=== PATIENT | female | born 1945 | race Caucasian/White ===

== ENCOUNTER 2016-08-14 08:33 | Emergency (ER) | payer MEDICARE, OTHER ==
[2016-08-14] MEDS ORDERED: ONDANSETRON HCL/PF 2 MG/ML VIAL IV ONE (09:18)
[2016-08-14] MEDS ORDERED: NORMAL SALINE 1,000 ML IV ONE (09:18)
[2016-08-14] MEDS ORDERED: FAMOTIDINE 10 MG/ML VIAL IV ONE (09:34)
[2016-08-14] MEDS ORDERED: ONDANSETRON HCL/PF 2 MG/ML VIAL ONE (09:34)
[2016-08-14 09:40] LABS: Urine Bilirubin Negative (NEGATIVE); Urine Blood 25 /ul (NEGATIVE); Urine Ketone Negative (NEGATIVE); Urine Nitrite Negative (NEGATIVE); Urine Protein 30 mg/dL (NEGATIVE); Urine Specific Gravity >=1.030 SP.GR. (1.005-1.010); Urine Urobilinogen Normal (NORMAL)
[2016-08-14 09:55] LABS: Urine Appearance Clear; Urine Color Dark Yellow
[2016-08-14 09:56] LABS: Urine Bacteria 1+; Urine RBC TRACE /hpf (0-5); Urine WBC TRACE /hpf (0-5)
[2016-08-14 09:59] LABS: Hematocrit 44.2 % (37.0-47.0); Hemoglobin 15.3 gm/dL (12.5-16.0); Mean Cell Volume 85.7 fl (78-100); Mean Corpuscular Hemoglobin 29.7 pg (27-31); Mean Corpuscular Hgb Conc 34.6 g/dl (32-36); Mean Platelet Volume 10.6 fl (6.0-9.5); Platelet Count 167 K/mm3 (150-450); Red Blood Count 5.16 M/mm3 (4.2-5.4)
[2016-08-14 10:02] LABS: White Blood Count 31.3 K/mm3 (4.0-10.5)
[2016-08-14 10:03] LABS: Total Cells Counted 100
[2016-08-14 10:08] LABS: Neutrophil 84 % (42-75)
[2016-08-14 10:09] LABS: Atypical (Reactive) Lymph 4 % (0-2); Band 8 % (0-2.0); Lymphocyte 3 % (20-51); Monocyte 1 % (0-9); Neutrophil # 26.3 K/mm3 (1.3-6.0)
[2016-08-14 10:10] LABS: Platelet Estimate Normal (NORMAL); Prothrombin Time (Patient) 11.9 Seconds (9.4-11.4); RBC Morphology Normal (NORMAL)
[2016-08-14 10:14] LABS: INR 1.14 INR (0.90-1.10); Partial Thrombolplastin Time 26.6 Seconds (24-32)
[2016-08-14 10:23] LABS: Albumin * 3.6 gm/dl (3.4-5.0); Bilirubin, Total 0.7 mg/dL (0.0-1.1); Ca. Corrected For Albumin 8.8 mg/dL (8.4-10.2); Calcium * 8.8 mg/dL (7.9-10.9); Carbon Dioxide 24.6 mmol/L (24-32.6); Potassium 4.6 mmol/L (3.4-4.6); Total Protein 7.3 gm/dL (6.2-8.2)
[2016-08-14 10:25] LABS: Troponin I 3.188 ng/ml (0.00-0.10)
[2016-08-14] MEDS: FAMOTIDINE 10 MG/ML VIAL IV ONE ×2 (10:33→10:47)
--- OUTSIDE RECORDS SUMMARY | 2016-08-14 10:33 | XMS REPORT | Continuity of Care Document ---
:1945 Author Organization [facility] ([facility]) Address [place] [address] Phone [phone] Care Team Providers Name Role Phone Elier Resendezlio Wiggins Primary Care Provider [phone] Source Comments This disclosure is being made pursuant to the Care Everywhere program, applicable federal and state laws, and may not contain all informaitonavailable regarding this patient.[facility] ([facility]) Active Allergies and Adverse Reactions Allergen Noted Date Severity Reactions Comments Cefaclor Urticaria (Hives) Cefadroxil Urticaria (Hives) Cephalexin Urticaria (Hives) Cephalosporins Urticaria (Hives) Clarithromycin Urticaria (Hives) Clopidogrel Urticaria (Hives) Codeine Nausea & Vomiting Erythromycin Urticaria (Hives) Morphine Nausea & Vomiting Other Agent Urticaria (Hives) Pt states gets red, itchy skin from BP cuff (even Latex free) if on for long periods. Penicillin V Urticaria (Hives) Penicillins Urticaria (Hives) Pollen Rhinorrhea Sulfadoxine Urticaria (Hives) Sulfamethoxazole Urticaria (Hives) Tetracycline 03/08/2012 Urticaria (Hives) Severe hives per pt Trimethoprim Urticaria (Hives) Current Medications Prescription Sig. Disp. Refills Start End Date Status Date aspirin (ASPIR-81) take 81 mg by Active 81 mg EC tablet mouth daily. loratadine 10 mg Take 10 mg by Active dissolvable tablet mouth daily. Indications: ALLERGIC RHINITIS multivitamin take 1 tablet by Active tablet oral route every 3 day with food coenzyme Q10 100 Take 200 mg by Active mg capsule mouth 2 times daily. clonazePAM 1 mg TK 1 T PO QHS PRN 30 tablet 1 Active tablet FOR RESTLESS LEGS 6 SUPPLY ACCU-CHEK 4 times daily. 300 Strip Active ERASMO PLUS test Insulin Dependent. 7 strip Frequent testing due to hypoglycemia SUPPLY ACCU-CHEK Take as directed 300 Each Active SOFTCLIX lancets daily. Insulin 7 Dependent. Frequent testing due to hypoglycemia. SUPPLY alcohol Use as directed. 200 Each Active (ALCOHOL PREP) 7 pads SUPPLY ACCU-CHEK by In Vitro route 1 Each 0 Active ERASMO meter daily. ICD-10-CM: 7 E11.9, Z79.4 atenolol 50 mg Take 1 tablet (50 90 tablet 11 Active tablet mg total) by mouth 7 daily. allopurinol 100 mg Take 1 tablet (100 90 tablet Active tablet mg total) by mouth 7 daily. carBAMazepine Take 1 capsule 180 capsule 3 Active (CARBATROL) 200 mg (200 mg total) by 7 CR capsule mouth 2 times daily. insulin aspart 10 units in AM, 30 mL 7 Active (NovoLOG FLEXPEN) then 20 units at 7 100 unit/mL (3 mL) lunch, 20 units injection pen with dinner lisinopril 30 mg Take 1 tablet (30 30 tablet 3 Active tablet mg total) by mouth 7 every morning. insulin glargine Use 40 units in 15 mL 6 Active (LanTUS SOLOSTAR) AM, 55 units in PM 7 100 unit/mL (3 mL) injection pen levothyroxine 125 Take 1 tablet (125 30 tablet 5 Active mcg tablet mcg total) by 7 mouth daily. insulin lispro Inject 20 Units 07/17/19 Discontinued (HumaLOG) 100 subcutaneously 3 17 unit/mL injection times daily before vial meals. insulin glargine 40 units AM and 55 08/09/19 Discontinued (LANTUS) 100 units PM 2 17 unit/mL injection vial pravastatin 10 mg TK 1 T PO QHS 11 08/14/19 Discontinued tablet 6 17 lisinopril 20 mg Take 1 tablet (20 90 tablet 08/09/19 Discontinued tablet mg total) by mouth 7 17 every morning. lisinopril 10 mg Take 1 tablet (10 90 tablet 08/09/19 Discontinued tablet mg total) by mouth 7 17 every evening. levothyroxine 150 Take 1 tablet (150 90 tablet 08/14/19 Discontinued mcg tablet mcg total) by 7 17 mouth daily. isosorbide Take 1 tablet (30 90 tablet 08/14/19 Discontinued dinitrate 30 mg mg total) by mouth 7 17 tablet daily. insulin aspart Inject 20 Units 30 mL 7 08/09/19 Discontinued (NovoLOG FLEXPEN) subcutaneously 3 7 17 100 unit/mL (3 mL) times daily before injection pen meals. Active Problems Problem Noted Date Morbid obesity 02/19/2016 Dermatophytosis of nail 05/10/2012 Pain in limb 05/10/2012 Diabetes mellitus type 2, controlled 03/27/2012 HTN (hypertension) 03/27/2012 Anxiety 03/27/2012 Depression 03/27/2012 GERD (gastroesophageal reflux disease) 03/27/2012 Pure hypercholesterolemia 03/27/2012 Rhinitis, allergic 03/27/2012 Seizure disorder 03/27/2012 Restless leg syndrome 03/27/2012 Diabetic neuropathy 03/27/2012 Contracture of joint, site unspecified 09/28/2007 Pain in joint, lower leg 05/02/2007 Most Recent Encounters Date Type Specialty Providers Description 08/13/2016 Telephone General Internal Jessica Resendez Dx: Controlled type 2 Medicine MD Feliciano diabetes mellitus without complication, unspecified exterminator helper termite insulin use status (Primary Dx) 08/09/2016 Office Visit Pathology Judy Smith Dx: Postablative MD Alphonso hypothyroidism Lab Services, Irl (Primary Dx) 08/09/2016 Hospital Encounter Radiology Default, Other Dx: Encounter for Billg - Defo screening mammogram Hadley Casarez for malignant neoplasm MD Yissel of breast 08/09/2016 Office Visit General Internal Default, Other Dx: Controlled type 2 Medicine Billg - Defo diabetes mellitus Judy Smith without complication, MD Alphonso unspecified exterminator helper termite Jessica Resendez insulin use status MD Feliciano (Primary Dx) 08/09/2016 [facility] Orders Patient Services 07/23/2016 Telephone General Internal Jessica Resendez Chief Comp: Medication Medicine MD Feliciano Problem 07/15/2016 Telephone General Internal Jessica Resendez Dx: Controlled type 2 Medicine MD Feliciano diabetes mellitus without complication, unspecified half-way insulin use status (Primary Dx) 07/09/2016 Hospital Encounter Neurology Bong Mclean, Dx: Seizure disorder 07/07/2016 Office Visit Neurology Allen Bond, Dx: Seizure disorder 07/06/2016 Office Visit Remy Jennings, Chief Comp: Patient Primary NEDA Hathaway Reported Reason For Visit 07/06/2016 Refill General Internal Jessica Resendez Dx: Essential Medicine MD Feliciano hypertension (Primary Dx) 07/06/2016 Refill General Internal Jessica Resendez Dx: Controlled type 2 Medicine MD Feliciano diabetes mellitus without complication, with long-term current use of insulin (Primary Dx) 06/24/2016 Telephone General Internal Jessica Resendez Dx: Controlled type 2 Medicine MD Feliciano diabetes mellitus without complication, with long-term current use of insulin (Primary Dx) 06/21/2016 Refill General Internal Jessica Resendez Dx: Controlled type 2 Medicine MD Feliciano diabetes mellitus without complication, with long-term current use of insulin (Primary Dx) 06/17/2016 Refill General Internal Jessica Resendez Dx: Controlled type 2 Medicine MD Feliciano diabetes mellitus with diabetic neuropathy, with long-term current use of insulin (Primary Dx) Immunizations Name Dates Previously Given Next Due Influenza, PF 03/08/2012,03/08/2011 Influenza, high dose 03/26/2016 Influenza, unspecified 03/13/2007 Pneumococcal Conjugate, PCV13 (Prevnar 13) 04/09/2016 Pneumococcal, unspecified 03/13/2006 Tdap 03/20/2015 Zoster, live (Zostavax) 11/06/2014 Social History Tobacco Use Types Packs/Day Years Used Date Former Smoker Cigarettes 0.5 1 Smokeless Tobacco: Never Used Tobacco Cessation:Counseling Given: Yes Comments: Alcohol Use Drinks/Week oz/Week Comments No Last Filed Vital Signs Vital Sign Reading Time Taken Blood Pressure 150/76 08/09/2016 7:39 AM CUSTOMER SERVICE TECHNICIAN Pulse 52 08/09/2016 7:39 AM CUSTOMER SERVICE TECHNICIAN Temperature 36.4 C (97.5 F) 08/09/2016 7:39 AM CUSTOMER SERVICE TECHNICIAN Respiratory Rate 16 08/09/2016 7:39 AM CUSTOMER SERVICE TECHNICIAN Height 1.575 m (5' 2.01") 08/09/2016 7:39 AM CUSTOMER SERVICE TECHNICIAN Weight 97.6 kg (215 lb 2.7 oz) 08/09/2016 7:39 AM CUSTOMER SERVICE TECHNICIAN Body Mass Index 39.34 08/09/2016 7:39 AM CUSTOMER SERVICE TECHNICIAN Oxygen Saturation - - Plan of Care Date Type Specialty Providers Description 11/22/2016 Appointment General Internal Default, Other Billg - Defo [address] [place] [address] [phone] (Fax) Chief Comp: Patient Medicine Jessica Resendez MD [address] [place] [address] [phone] (Fax) Reported Reason For Visit Health Maintenance Due Date Last Done Comments Hepatitis B Vaccine (1 of 3 - 1945 Primary Series) Colonoscopy 02/03/1997 Osteoporosis Screening (DXA 02/05/2012 Bone Density) DIABETIC: Retinal Eye Exam 05/09/2012 DIABETIC: Hemoglobin A1C 02/06/2017 08/09/2016, Additional history exists 04/27/2016, 01/06/2016 Pneumococcal Vaccine (2 of 2 04/09/2017 04/09/2016 - PPSV23) DIABETIC: Cholesterol 08/09/2017 08/09/2016, 02/19/2016 Diabetic: Hdl 08/09/2017 08/09/2016, 02/19/2016 Diabetic: Ldl 08/09/2017 08/09/2016, 02/19/2016 DIABETIC: Microalbumin 08/09/2017 08/09/2016, 02/19/2016 DIABETIC: Triglycerides 08/09/2017 08/09/2016, 02/19/2016 Mammogram 08/09/2017 08/09/2016 DIABETIC: Foot Exam 08/13/2017 08/13/2016, 02/19/2016 Td Vaccine 03/20/2025 03/20/2015 Zoster Vaccine Completed 11/06/2014 Tdap Vaccine Completed 03/20/2015 HCV Screening Completed 02/19/2016 Influenza Vaccine: Seasonal Completed 03/26/2016, Additional history exists 03/08/2012, 03/08/2011 Procedures from Last 3 Months Procedure Name Priority Date/Time Associated Diagnosis Comments HEALTH MAINTENANCE Routine 08/13/2016 7:36 AM Controlled type 2 DIABETIC FOOT EXAM CUSTOMER SERVICE TECHNICIAN diabetes mellitus without complication, unspecified half-way insulin use status Results from Last 3 Months THYROXINE - FREE (08/09/2016 10:31 AM) Component Value Range Free T4 (Thyroxine) 1.17 0.80-1.80 ng/dL Specimen Blood THYROID STIMULATING HORMONE (TSH), WITH REFLEX FREE T-4 (08/09/2016 10:31 AM) Component Value Range TSH, Reflex 0.18(L) 0.27-4.20 IU/mL Specimen Blood MICROALBUMIN, URINE RANDOM (08/09/2016 10:31 AM) Component Value Range Microalbumin Calculation 7.1 0.0-19.9 g/mg Creatinine, Urine, Random 112.0 mg/dL Specimen Urine LIPID PANEL (08/09/2016 10:31 AM) Component Value Range Specimen Type Fasting Cholesterol 142Comment: mg/dL Reference Range: Less than 200 mg/dL - desirable 200 - 240 mg/dL - increased risk Above 240 mg/dL - significant risk Triglycerides 239(H)Comment: 0-150 mg/dL Reference Ranges: Normal:<150 mg/dL Borderline-high:150-199 mg/dL High: 200-499 mg/dL Very high: > ud=261 mg/dL HDL Cholesterol 31(L) >=41 mg/dL LDL - Calculated 63 <=130 mg/dL Non-HDL Cholesterol (Calc) 111Comment: mg/dL The reference ranges for Non-HDL-C are based on National Cholesterol Education III guidelines: Desirable: <130 mg/dL Borderline High: 130-159 mg/dL High:160-189 mg/dL Very High: > bm=681 mg/dL Specimen Blood HEMOGLOBIN A1C (08/09/2016 10:31 AM) Component Value Range Hemoglobin A1c 6.2(H)Comment: 4.8-6.0 % Glycemic Control Guidelines: Non-diabetic <6% Goal <7% Therapeutic Action >8% Estimated Average Glucose 131Comment: mg/dL The estimated average glucose (eAG) calculated from the HbA1c changed on 30/01.See Laboratory Bulletins in the Department of Pathology Laboratory Services Handbook for a full discussion.Not e that the new calculated glucose will now be lower.The A1c result is unchanged. Specimen Whole Blood BASIC METABOLIC PANEL W/ CALCIUM (CHEM 8) (08/09/2016 10:31 AM) Component Value Range Sodium 145 135-145 mEq/L Potassium 4.3 3.5-5.0 mEq/L Chloride 104 95-107 mEq/L CO2 25 22-29 mEq/L Anion Gap 16 8-18 mEq/L BUN 10 10-20 mg/dL Creatinine 0.7Comment: 0.5-1.0 mg/dL Creatinine switched to enzymatic method on 10/20/2010.GFR equation switched to IDMS-traceable MDRD equation on 10/20/2010. Calculated GFR values are not valid in clinical settings where serum creatinine is changing. Glucose 107(H)Comment: 65-99 mg/dL The Expert Committee on the Diagnosis and Classification of Diabetes has defined impaired fasting glucose as greater than or equal to 100 mg/dL but less than 126 mg/dL.(Diabetes Care 28 (Suppl 1)S41,2005) Calcium 9.1 8.5-10.5 mg/dL Calculated GFR 83 >60 mL/min/1.73 m2 Specimen Blood BI DIGITAL SCREENING MAMMOGRAM BILATERAL& KELSIE (08/09/2016 10:09 AM) Addenda Addendum by Heraclio Deleon MD on 08/11/2016 10:10 AM Addendum: Comparison to outside mammogram obtained from [facility] dated 10/01/2014, 05/04/2010, 01/15/2009. Findings: Bilateral subcentimeter asymmetries are stable from prior exams. Grouped calcifications within the lower outer right breast are grossly stable. No significant interval change in either breast since the prior examination. Yearly screening mammography recommended. Impression: Stable bilateral mammogram. Recommendation:Screening Mammogram in one year is recommended. These results were provided to the patient by letter. Final Assessment: Benign findings BI-RADS 2 Impressions Findings / Impression: There are scattered bilateral subcentimeter asymmetries. There are grouped calcifications within the lower outer right breast. Comparison to the prior outside mammogram is recommended to determine whether these findings are new or stable. Recommendation: Final assessment will be made when prior studies are received for comparison. These results were provided to the patient by letter. Final Assessment: Incomplete, Needs additional imaging Evaluation - Comparison with prior studies BI-RADS Category 0. Narrative Procedure: BI DIGITAL SCREENING MAMMOGRAM BILATERAL & KELSIE Technique:Digital mammogram with Tomosynthesis, bilateral CC and MLO views. Clinical Indication:Breast cancer screening Personal History of breast cancer:No Personal Delivery History:Prior to age 32 Personal History of biopsy proven benign breast disease:No Personal history of reduction mammoplasty: No Family History of breast cancer:No Date of Comparison Study:Will be requested and compared with the current examination. Parenchymal Radiodensity:There are scattered areas of fibroglandular density. Procedure Note Everton Reed MD - TueAug 11, 2016 9:46 AM CUSTOMER SERVICE TECHNICIAN Procedure: BI DIGITAL SCREENING MAMMOGRAM BILATERAL & KELSIE Technique: Digital mammogram with Tomosynthesis, bilateral CC and MLO views. Clinical Indication: Breast cancer screening Personal History of breast cancer: No Personal Delivery History: Prior to age 32 Personal History of biopsy proven benign breast disease: No Personal history of reduction mammoplasty: No Family History of breast cancer: No Date of Comparison Study: Will be requested and compared with the current examination. Parenchymal Radiodensity: There are scattered areas of fibroglandular density. IMPRESSION Findings / Impression: There are scattered bilateral subcentimeter asymmetries. There are grouped calcifications within the lower outer right breast. Comparison to the prior outside mammogram is recommended to determine whether these findings are new or stable. Recommendation: Final assessment will be made when prior studies are received for comparison. These results were provided to the patient by letter. Final Assessment: Incomplete, Needs additional imaging Evaluation - Comparison with prior studies BI-RADS Category 0. EEG - IN LAB (07/19/2016 1:50 PM) Gemini Bhatt MD 07/19/20161:50 PM Clinical State: Awake and asleep Electrographic Findings: This was a 22 minute recording. Background: Normal 10-11 Hz posterior dominant rhythm and general background. There was activation of bitemporal wicket waves, which were more prominent over the left temporal region, during drowsiness and sleep. During 9 minutes of drowsiness and light sleep sleep, there was symmetric sleep activity. Interictal Discharges: None Ictal Discharges: None Reactive EEG change: Present Clinical Events: None Description: Normal posterior dominant rhythm and general background. The activation of wicket waves during drowsiness and light sleep has no clinical significance. Impression: Normal EEG for the awake and sleep state. Staff Involved Staff Only Gemini Soto MD Department of Neurology, Epilepsy Division Attending Electronically signed Technical Parameter Details: Background Activity (awake) Primary Frequency 9-11 Hz Amplitude 40-60 microvolts Organization good Symmetry equal frequencies in both hemispheres Attenuation physiological Beta Rhythm absent Abnormal Activity (awake): None; Activation of wicket waves during drowsiness and sleep. Level of Sleep:N1 Hyperventilation Performance:Satisfactory with response showing physiologic response. Photic Stimulation:Satisfactory with no well developed photic driving. Special Forms, Patterns, or Rhythms:None Degree of Abnormality of EEG:Normal For Clinical impression and correlation please see above the technical detail section.
--- OUTSIDE RECORDS SUMMARY | 2016-08-14 10:33 | XMS REPORT | CCD ---
:1945 Author Name HAN MURPHY Address [address] [facility] Unavailable [place], [place] [id number] Care Team Providers Name Role Phone SANA BOB Attending Physician Unavailable Vital Signs Unknown. Allergies Allergy Code Allergy Type Reaction Status CEPHALEXIN 0 Drug allergy (disorder) Active Unknown Code - 0 0 Propensity to adverse reactions (disorder) Active DURICEF 0 Drug allergy (disorder) Active PRADAXA 0 Drug allergy (disorder) Active LATEX 0 Allergy to substance (disorder) Active CLARITHROMYCIN 0 Drug allergy (disorder) Active TETRACYCLINE 0 Drug allergy (disorder) Active CODEINE 0 Drug allergy (disorder) Active MORPHINE 0 Drug allergy (disorder) Active SULFAMETHOXAZOLE 0 Drug allergy (disorder) Active PENICILLIN 0 Drug allergy (disorder) Active CLOPIDOGREL 0 Drug allergy (disorder) Active CECLOR 0 Drug allergy (disorder) Active Procedures Unknown. History of Immunizations Immunization Code Date pneumococcal, unspecified formulation 109 03/23/2011 Invalid Cvx Code 144 03/08/2012 Problems Problem Code Start Date Resolved Date Status CHEST PAIN 43041257 05/23/2012 Active CORONARY ATHEROSCLEROSIS OF [place] CORONARY 58769 05/23/2012 Active ARTERY BP (HIGH BLOOD PRESSURE) 08149004 05/23/2012 Active OLD MYOCARDIAL INFARCT 2230258 05/23/2012 Active TYPE II DIABETES MELLITUS 15059446 05/23/2012 Active EPILEPSY 93212968 05/23/2012 Active HYPOTHYROIDISM 78072376 05/23/2012 Active Results Unknown. Medications Medication Code Dose Units Frequency Route Modification Start Stop Date/Time Date/Time Carbamazepine 300235 200 MILLIGRA 3 x a day, ORAL 06/05/2012 200MG Oral MS as needed 11:40 Tablet, Extended Release Allopurinol 208414 100 MILLIGRA Daily ORAL 06/05/2012 100MG Oral MS 11:40 Tablet Gemfibrozil 944981 600 MILLIGRA Twice a ORAL 06/05/2012 600MG Oral MS day 11:40 Tablet Levothyroxine 129662 0.175 MILLIGRA Daily ORAL 06/05/2012 Sodium 0.175MG MS 11:40 Oral Tablet Atenolol 50MG 506657 50 MILLIGRA At bedtime ORAL 06/05/2012 Oral Tablet MS 11:40 Aspirin 81MG 784628 81 MILLIGRA DAILY ORAL 08/10/2013 Oral Tablet MS 12:10 Lantus 494211 1 EACH TWICE A SUBCUTAN 08/10/2013 100U/1ML DAY EOUS 12:10 Subcutaneous Solution Lisinopril 024851 30 MILLIGRA DAILY ORAL 08/10/2013 30MG Oral MS 12:10 Tablet L-LYSINE 0 2 TABLET NEEDED BY MOUTH 08/10/2013 1000MG 12:10 Nitroglycerin 891892 0.4 MILLIGRA NEEDED SUBLINGU 08/10/2013 0.4MG MS AL 12:10 Sublingual Tablet Novolog 475051 25 UNITS DAILY SUBCUTAN 08/10/2013 FlexPen EOUS 12:10 100U/ML Subcutaneous Solution [facility] 154521 200 MILLIGRA TWICE A ORAL 08/10/2013 [employer] Q-10 MS DAY 12:10 200MG Oral Capsule, Liquid Filled Omeprazole 420640 20 MILLIGRA DAILY ORAL 08/10/2013 20MG Oral MS 12:11 Capsule, Delayed Release Isosorbide 802703 30 MILLIGRA DAILY ORAL 08/10/2013 Mononitrate MS 12:11 30MG Oral Tablet, Extended Release Diphenox/Atrop 0038602 1 EACH NEEDED ORAL 08/10/2013 ine 12:11 0.025MG-2.5MG Oral Tablet Mirapex 0.25MG 241389 0.25 MILLIGRA BEFORE BED ORAL 08/10/2013 Oral Tablet MS 12:11 Medications Administered Unknown. Encounters Encounter Diagnosis Diagnosis Code Start Date DIABETES W O COMP TYPE 2 UNSPECIFIE 08562 08/10/2013 Social History Smoking Status Code Start Date End Date Former smoker 0294507 Patient Decision Aids Unknown. Instructions You were admitted to [facility] on 08/10/2013 with a principle diagnosis of DIABETES W O COMP TYPE 2 UNSPECIFIE. You were discharged from [facility] on 08/10/2013. Should you have any questions prior to discharge, please contact a member of your healthcare team. If you have left the hospital and have any questions, please contact your primary care physician. Chief Complaint and Reason For Visit Unknown. Function Status Unknown. Plan of Care Unknown. Referral/Transition of Care Unknown.
--- OUTSIDE RECORDS SUMMARY | 2016-08-14 10:33 | XMS REPORT | CCD ---
:1945 Author Name HAN MURPHY Address [address] [facility] Unavailable [place], [place] [id number] Care Team Providers Name Role Phone MIAN EASLEY Attending Physician Unavailable Vital Signs Unknown. Allergies Allergy Code Allergy Type Reaction Status CEPHALEXIN 2231 Drug allergy (disorder) Active Unknown Code - 0 0 Propensity to adverse reactions (disorder) Active DURICEF 173615 Drug allergy (disorder) Active PRADAXA 1273698 Drug allergy (disorder) Active LATEX 0 Allergy to substance (disorder) Active CLARITHROMYCIN 05363 Drug allergy (disorder) Active TETRACYCLINE 07175 Drug allergy (disorder) Active CODEINE 2670 Drug allergy (disorder) Active MORPHINE 7052 Drug allergy (disorder) Active SULFAMETHOXAZOLE 39124 Drug allergy (disorder) Active PENICILLIN 76718 Drug allergy (disorder) Active CLOPIDOGREL 08070 Drug allergy (disorder) Active CECLOR 068135 Drug allergy (disorder) Active Procedures Unknown. History of Immunizations Immunization Code Date pneumococcal, unspecified formulation 109 03/23/2011 influenza, seasonal, intradermal, preservative free 144 03/08/2012 Problems Problem Code Start Date Resolved Date Status CHEST PAIN 40563694 05/23/2012 Active CORONARY ATHEROSCLEROSIS OF [place] CORONARY 64325 05/23/2012 Active ARTERY BP (HIGH BLOOD PRESSURE) 46337941 05/23/2012 Active OLD MYOCARDIAL INFARCT 3556925 05/23/2012 Active TYPE II DIABETES MELLITUS 45809448 05/23/2012 Active EPILEPSY 27039745 05/23/2012 Active HYPOTHYROIDISM 65705258 05/23/2012 Active Results HEMOGRAM Test Name Code Test Result Test Units Test Date/Time WBC 6690-2 9.4000 K/uL 12/05/2013 09:24 RBC 789-8 5.0500 M/uL 12/05/2013 09:24 HEMOGLOBIN 718-7 14.7000 g/dL 12/05/2013 09:24 HEMATOCRIT 42.4000 % 12/05/2013 09:24 MCV 84.0000 fL 12/05/2013 09:24 MCH 29.1000 PG 12/05/2013 09:24 MCHC 34.7000 G/DL 12/05/2013 09:24 PLATELETS 192.0000 K/UL 12/05/2013 09:24 RDW-SD 42.1000 FL 12/05/2013 09:24 RDW-CV 14.3000 % 12/05/2013 09:24 MPV 10.8000 FL 12/05/2013 09:24 SLIDE REVIEWED? NOT INDICATED N/A 12/05/2013 09:24 LIPID PANEL Test Name Code Test Result Test Units Test Date/Time CHOLESTEROL 2093-3 145.0000 mg/dL 12/05/2013 09:24 TRIGLYCERIDES 2571-8 194.0000 mg/dL 12/05/2013 09:24 HDL 2085-9 32.0000 mg/dL 12/05/2013 09:24 LDL 2089-1 74.0000 mg/dL 12/05/2013 09:24 CHOL/HDL 9830-1 4.5000 12/05/2013 09:24 TSH Test Name Code Test Result Test Units Test Date/Time TSH 3016-3 0.0600 uIU/ml 12/05/2013 09:24 COMPREHENSIVE METABOLIC PANEL Test Name Code Test Result Test Units Test Date/Time GLUCOSE 148.0000 mg/dL 12/05/2013 09:24 SODIUM 141.0000 mmol/L 12/05/2013 09:24 POTASSIUM 4.4000 mmol/L 12/05/2013 09:24 CHLORIDE 104.0000 mmol/L 12/05/2013 09:24 CO2 26.0000 mmol/L 12/05/2013 09:24 BUN 21.0000 mg/dL 12/05/2013 09:24 CREATININE 0.8000 mg/dL 12/05/2013 09:24 BUN/CREAT 26.3000 12/05/2013 09:24 CALCIUM 9.4000 mg/dL 12/05/2013 09:24 TOTAL BILI 0.4000 mg/dL 12/05/2013 09:24 TOTAL PROTEIN 7.4000 g/dL 12/05/2013 09:24 ALBUMIN 4.3000 g/dL 12/05/2013 09:24 A/G RATIO 1.4000 12/05/2013 09:24 ALKALINE PHOS 172.0000 IU/L 12/05/2013 09:24 AST/SGOT 23.0000 IU/L 12/05/2013 09:24 ALT/SGPT 37.0000 IU/L 12/05/2013 09:24 ANION GAP 15.0000 mmol/L 12/05/2013 09:24 [age] YE[age] 12/05/2013 09:24 GFR 76.2800 ml/min 12/05/2013 09:24 GLYCOSYLATED HGB Test Name Code Test Result Test Units Test Date/Time HA1c% 4548-4 6.8000 % 12/05/2013 09:24 eAG 148.0000 mg/dL 12/05/2013 09:24 MICROALBUMIN RANDOM Test Name Code Test Result Test Units Test Date/Time UR CREATININE 105.2000 mg/dL 12/05/2013 09:24 MICROALBUMIN RANDOM 0.2000 mg/dL 12/05/2013 09:24 MALB CREAT RATIO 1.9000 mg/g 12/05/2013 09:24 T4 FREE Test Name Code Test Result Test Units Test Date/Time FREE T4 0.9000 ng/dl 12/05/2013 09:24 Medications Medication Code Dose Units Frequency Route Modification Start Stop Date/Time Date/Time Carbamazepine 393781 200 MILLIGRA 3 x a day, ORAL 06/05/2012 200MG Oral MS as needed 11:40 Tablet, Extended Release Allopurinol 279364 100 MILLIGRA Daily ORAL 06/05/2012 100MG Oral MS 11:40 Tablet Gemfibrozil 854561 600 MILLIGRA Twice a ORAL 06/05/2012 600MG Oral MS day 11:40 Tablet Levothyroxine 256611 0.175 MILLIGRA Daily ORAL 06/05/2012 Sodium 0.175MG MS 11:40 Oral Tablet Atenolol 50MG 141650 50 MILLIGRA At bedtime ORAL 06/05/2012 Oral Tablet MS 11:40 Aspirin 81MG 365093 81 MILLIGRA DAILY ORAL 08/10/2013 Oral Tablet MS 12:10 Lantus 817907 1 EACH TWICE A SUBCUTAN 08/10/2013 100U/1ML DAY EOUS 12:10 Subcutaneous Solution Lisinopril 647215 30 MILLIGRA DAILY ORAL 08/10/2013 30MG Oral MS 12:10 Tablet L-LYSINE 0 2 TABLET NEEDED BY MOUTH 08/10/2013 1000MG 12:10 Nitroglycerin 713250 0.4 MILLIGRA NEEDED SUBLINGU 08/10/2013 0.4MG MS AL 12:10 Sublingual Tablet Novolog 340188 25 UNITS DAILY SUBCUTAN 08/10/2013 FlexPen EOUS 12:10 100U/ML Subcutaneous Solution The Medicine 783253 200 MILLIGRA TWICE A ORAL 08/10/2013 [employer] Q-10 MS DAY 12:10 200MG Oral Capsule, Liquid Filled Omeprazole 228044 20 MILLIGRA DAILY ORAL 08/10/2013 20MG Oral MS 12:11 Capsule, Delayed Release Isosorbide 420908 30 MILLIGRA DAILY ORAL 08/10/2013 Mononitrate MS 12:11 30MG Oral Tablet, Extended Release Diphenox/Atrop 3911923 1 EACH NEEDED ORAL 08/10/2013 ine 12:11 0.025MG-2.5MG Oral Tablet Mirapex 0.25MG 663525 0.25 MILLIGRA BEFORE BED ORAL 08/10/2013 Oral Tablet MS 12:11 Medications Administered Unknown. Encounters Encounter Diagnosis Diagnosis Code Start Date DIABETES W O COMP TYPE 2 UNSPECIFIE 20070 12/05/2013 Social History Smoking Status Code Start Date End Date Former smoker [id number] 01/11/1963 06/13/1969 Patient Decision Aids Unknown. Discharge Instructions You were admitted to [facility] on 12/05/2013 with a principle diagnosis of DIABETES W O COMP TYPE 2 UNSPECIFIE. You were discharged from [facility] on 12/05/2013. Should you have any questions prior to discharge, please contact a member of your healthcare team. If you have left the hospital and have any questions, please contact your primary care physician. Chief Complaint and Reason For Visit Unknown. Function Status Unknown. Plan of Care Diagnostic Test Pending Plan of Care Pending Diagnostic Test CARBAMAZEPINE/TEGRETOL, SERUM OR PLASMA, [LOINC: 3432-2], 12/05/2013 Referral/Transition of Care Unknown.
--- OUTSIDE RECORDS SUMMARY | 2016-08-14 10:34 | XMS REPORT | CCD ---
:1945 Author Name HAN MURPHY Address [address] [facility] Unavailable [place], [place] [id number] Care Team Providers Name Role Phone Alphonso DEL REAL Attending Physician Unavailable Vital Signs Vital Sign Value Unit Date/Time Recent/Initial? Weight Measured 220 lbs 10/31/2014 06:58 Initial VS Height 62 in 10/31/2014 06:58 Initial VS BMI (Body Mass Index) 40.24 kg/m^2 10/31/2014 06:58 Initial VS BSA (Body Surface Area) 2.09 m^2 10/31/2014 06:58 Initial VS Allergies Allergy Code Allergy Type Reaction Status CEPHALEXIN 2231 Drug allergy Active Unknown Code - 0 0 Propensity to adverse reactions Active DURICEF 500314 Drug allergy Active PRADAXA 8395331 Drug allergy Active LATEX 0 Allergy to substance Active CLARITHROMYCIN 42252 Drug allergy Active TETRACYCLINE 65303 Drug allergy Active CODEINE 2670 Drug allergy Active MORPHINE 7052 Drug allergy Active SULFAMETHOXAZOLE 87096 Drug allergy Active PENICILLIN 07451 Drug allergy Active CLOPIDOGREL 76350 Drug allergy Active CECLOR 632920 Drug allergy Active Procedures Procedure Code Procedure Type Date ENDOSCOPIC LG BOWEL BX 4525 ICD-9 CM, Volume 3 10/31/2014 History of Immunizations Immunization Code Date pneumococcal, unspecified formulation 109 03/23/2011 influenza, seasonal, intradermal, preservative free 144 03/08/2012 Problems Problem Code Start Date Resolved Date Status CHEST PAIN 17395962 05/23/2012 Active CORONARY ATHEROSCLEROSIS OF [place] CORONARY 26765 05/23/2012 Active ARTERY BP (HIGH BLOOD PRESSURE) 00007746 05/23/2012 Active OLD MYOCARDIAL INFARCT 5700942 05/23/2012 Active TYPE II DIABETES MELLITUS 36253574 05/23/2012 Active EPILEPSY 20968091 05/23/2012 Active HYPOTHYROIDISM 85125302 05/23/2012 Active Results Unknown or Not Available. Active Medications Medication Code Dose Units Frequency Route Modification Start Date/Time Diphenox/Atropi 1978524 1 EACH NEEDED ORAL 08/10/2013 ne 12:11 0.025MG-2.5MG Oral Tablet Isosorbide 114606 30 MILLIGRAMS DAILY ORAL 08/10/2013 Mononitrate 12:11 30MG Oral Tablet, Extended Release Mirapex 0.25MG 214978 0.25 MILLIGRAMS BEFORE BED ORAL 08/10/2013 Oral Tablet 12:11 Omeprazole 20MG 023047 20 MILLIGRAMS DAILY ORAL 08/10/2013 Oral Capsule, 12:11 Delayed Release Aspirin 81MG 523312 81 MILLIGRAMS DAILY ORAL 08/10/2013 Oral Tablet 12:10 L-LYSINE 1000MG 0 2 TABLET NEEDED BY MOUTH 08/10/2013 12:10 Lantus 100U/1ML 543176 1 EACH TWICE A SUBCUTANEOUS 08/10/2013 Subcutaneous DAY 12:10 Solution Lisinopril 30MG 916531 30 MILLIGRAMS DAILY ORAL 08/10/2013 Oral Tablet 12:10 Nitroglycerin 578945 0.4 MILLIGRAMS NEEDED SUBLINGUAL 08/10/2013 0.4MG 12:10 Sublingual Tablet Novolog FlexPen 938126 25 UNITS DAILY SUBCUTANEOUS 08/10/2013 100U/ML 12:10 Subcutaneous Solution The Medicine 988916 200 MILLIGRAMS TWICE A ORAL 08/10/2013 [employer] Q-10 DAY 12:10 200MG Oral Capsule, Liquid Filled Atenolol 50MG 636494 50 MILLIGRAMS At bedtime ORAL 06/05/2012 Oral Tablet 11:40 Gemfibrozil 807192 600 MILLIGRAMS Twice a ORAL 06/05/2012 600MG Oral day 11:40 Tablet Levothyroxine 800632 0.175 MILLIGRAMS Daily ORAL 06/05/2012 Sodium 0.175MG 11:40 Oral Tablet Allopurinol 599360 100 MILLIGRAMS Daily ORAL 06/05/2012 100MG Oral 11:40 Tablet Carbamazepine 270700 200 MILLIGRAMS 3 x a day, ORAL 06/05/2012 200MG Oral as needed 11:40 Tablet, Extended Release Medications Administered During Visit Unknown or Not Available. Encounters Encounter Diagnosis Diagnosis Code Start Date DIARRHEA 71084 10/31/2014 Social History Smoking Status Code Start Date End Date Former smoker [id number] 01/11/1963 06/13/1969 Patient Decision Aids Unknown or Not Available. Discharge Instructions You were admitted to [facility] on 10/31/2014 with a principal diagnosis of DIARRHEA. You had the following procedures done:COLONOSCOPY AND BIOPSY You were discharged from [facility] on 10/31/2014. Should you have any questions prior to discharge, please contact a member of your healthcare team. If you have left the hospital and have any questions, please contact your primary care physician. Chief Complaint and Reason For Visit Unknown or Not Available. Function Status Unknown or Not Available. Plan of Care Unknown or Not Available. Referral/Transition of Care Unknown or Not Available.
--- OUTSIDE RECORDS SUMMARY | 2016-08-14 10:34 | XMS REPORT | CCD ---
:1945 Author Name HAN MURPHY Address [address] [facility] Unavailable [place], [place] [phone] Care Team Providers Name Role Phone MIAN EASLEY Attending Physician Unavailable Vital Signs Unknown or Not Available. Allergies Allergy Code Allergy Type Reaction Status CEPHALEXIN 2231 Drug allergy Active Unknown Code - 0 0 Propensity to adverse reactions Active DURICEF 914367 Drug allergy Active PRADAXA 9127114 Drug allergy Active LATEX 0 Allergy to substance Active CLARITHROMYCIN 18069 Drug allergy Active TETRACYCLINE 05291 Drug allergy Active CODEINE 2670 Drug allergy Active MORPHINE 7052 Drug allergy Active SULFAMETHOXAZOLE 51914 Drug allergy Active PENICILLIN 21225 Drug allergy Active CLOPIDOGREL 34508 Drug allergy Active CECLOR 751975 Drug allergy Active Procedures Procedure Code Procedure Type Date TSH 18207886 SNOMED CT 10/21/2014 LIPID PANEL 85237936 SNOMED CT 10/21/2014 History of Immunizations Immunization Code Date pneumococcal, unspecified formulation 109 03/23/2011 influenza, seasonal, intradermal, preservative free 144 03/08/2012 Problems Problem Code Start Date Resolved Date Status CHEST PAIN 80195247 05/23/2012 Active CORONARY ATHEROSCLEROSIS OF [place] CORONARY 00367 05/23/2012 Active ARTERY BP (HIGH BLOOD PRESSURE) 56750988 05/23/2012 Active OLD MYOCARDIAL INFARCT 2167436 05/23/2012 Active TYPE II DIABETES MELLITUS 79726006 05/23/2012 Active EPILEPSY 09939679 05/23/2012 Active HYPOTHYROIDISM 95012779 05/23/2012 Active Results COMPREHENSIVE METABOLIC PANEL - Collect Date/Time: 10/21/2014 10:56 Test Name Code Test Result Test Units Test Ref Range GLUCOSE 174 mg/dL L=74 H=106 SODIUM 140 mmol/L L=136 H=145 POTASSIUM 4.3 mmol/L L=3.5 H=5.1 CHLORIDE 104 mmol/L L=98 H=107 CO2 27 mmol/L L=21 H=32 BUN 16.0 mg/dL L=7.0 H=18.0 CREATININE 0.8 mg/dL L=0.6 H=1.0 BUN/CREAT 20.0 L=7.6 H=21.2 CALCIUM 8.6 mg/dL L=8.6 H=10.1 TOTAL BILI 0.3 mg/dL L=0.2 H=1.0 TOTAL PROTEIN 6.9 g/dL L=6.4 H=8.2 ALBUMIN 3.8 g/dL L=3.4 H=5.0 A/G RATIO 1.2 ALKALINE PHOS 132 IU/L L=50 H=136 AST/SGOT 29 IU/L L=15 H=37 ALT/SGPT 37 IU/L L=12 H=78 ANION GAP 13.4 mmol/L L=7.0 H=16.0 AGE 69 YEARS GFR 76.04 ml/min LIPID PANEL - Collect Date/Time: 10/21/2014 10:56 Test Name Code Test Result Test Units Test Ref Range CHOLESTEROL 2093-3 140 mg/dL L=0 H=200 TRIGLYCERIDES 2571-8 642 mg/dL L=0 H=200 HDL 2085-9 27 mg/dL L=40 H=60 CHOL/HDL 9830-1 5.2 L=0.0 H=6.7 LDL COMMENT: CALCULATED LDL IS NOT APPROPRIATE N/A WHEN ` SPECIMENS HAVE A TRIGLYCERIDE N/A CONCENTRATIO `` GREATER THAN 400 MG/DL. DIRECT LDL N/A ``` CHOLESTEROL SHOULD BE REQUESTED N/A LDL N/A N/A L=0 H=160 T3 FREE - Collect Date/Time: 10/21/2014 10:56 Test Name Code Test Result Test Units Test Ref Range T3 FREE 2.38 pg/mL L=2.18 H=3.98 T4 FREE - Collect Date/Time: 10/21/2014 10:56 Test Name Code Test Result Test Units Test Ref Range FREE T4 1.01 ng/dl L=0.76 H=1.46 TSH - Collect Date/Time: 10/21/2014 10:56 Test Name Code Test Result Test Units Test Ref Range TSH 3016-3 0.173 uIU/ml L=0.360 H=3.740 HEMOGRAM - Collect Date/Time: 10/21/2014 10:56 Test Name Code Test Result Test Units Test Ref Range WBC 6690-2 9.5 K/uL L=3.2 H=10.0 RBC 789-8 4.95 M/uL L=4.00 H=5.20 HEMOGLOBIN 718-7 14.5 g/dL L=12.1 H=15.6 HEMATOCRIT 41.4 % L=35.0 H=47.0 MCV 83.6 fL L=81.0 H=101 MCH 29.3 PG L=26.0 H=38.0 MCHC 35.0 G/DL L=31.0 H=37.0 PLATELETS 170 K/UL L=140 H=380 RDW-SD 42.7 FL L=37.0 H=54.0 RDW-CV 14.5 % L=11.0 H=16.0 MPV 10.4 FL L=9.0 H=13.0 SLIDE REVIEWED? NOT INDICATED N/A Active Medications Medication Code Dose Units Frequency Route Modification Start Date/Time Diphenox/Atropi 5089626 1 EACH NEEDED ORAL 08/10/2013 ne 12:11 0.025MG-2.5MG Oral Tablet Isosorbide 325808 30 MILLIGRAMS DAILY ORAL 08/10/2013 Mononitrate 12:11 30MG Oral Tablet, Extended Release Mirapex 0.25MG 480262 0.25 MILLIGRAMS BEFORE BED ORAL 08/10/2013 Oral Tablet 12:11 Omeprazole 20MG 264944 20 MILLIGRAMS DAILY ORAL 08/10/2013 Oral Capsule, 12:11 Delayed Release Aspirin 81MG 895333 81 MILLIGRAMS DAILY ORAL 08/10/2013 Oral Tablet 12:10 L-LYSINE 1000MG 0 2 TABLET NEEDED BY MOUTH 08/10/2013 12:10 Lantus 100U/1ML 421572 1 EACH TWICE A SUBCUTANEOUS 08/10/2013 Subcutaneous DAY 12:10 Solution Lisinopril 30MG 715899 30 MILLIGRAMS DAILY ORAL 08/10/2013 Oral Tablet 12:10 Nitroglycerin 015258 0.4 MILLIGRAMS NEEDED SUBLINGUAL 08/10/2013 0.4MG 12:10 Sublingual Tablet Novolog FlexPen 823854 25 UNITS DAILY SUBCUTANEOUS 08/10/2013 100U/ML 12:10 Subcutaneous Solution The Medicine 172622 200 MILLIGRAMS TWICE A ORAL 08/10/2013 [employer] Q-10 DAY 12:10 200MG Oral Capsule, Liquid Filled Atenolol 50MG 110226 50 MILLIGRAMS At bedtime ORAL 06/05/2012 Oral Tablet 11:40 Gemfibrozil 135918 600 MILLIGRAMS Twice a ORAL 06/05/2012 600MG Oral day 11:40 Tablet Levothyroxine 692237 0.175 MILLIGRAMS Daily ORAL 06/05/2012 Sodium 0.175MG 11:40 Oral Tablet Allopurinol 931200 100 MILLIGRAMS Daily ORAL 06/05/2012 100MG Oral 11:40 Tablet Carbamazepine 189005 200 MILLIGRAMS 3 x a day, ORAL 06/05/2012 200MG Oral as needed 11:40 Tablet, Extended Release Medications Administered During Visit Unknown or Not Available. Encounters Encounter Diagnosis Diagnosis Code Start Date ABDOMINAL PAIN, UNSPECIFIED SITE 52963 10/21/2014 Social History Smoking Status Code Start Date End Date Former smoker [id number] 01/11/1963 06/13/1969 Patient Decision Aids Unknown or Not Available. Discharge Instructions You were admitted to [facility] on 10/21/2014 with a principal diagnosis of ABDOMINAL PAIN, UNSPECIFIED SITE. You were discharged from [facility] on 10/21/2014. Should you have any questions prior to [...]
--- OUTSIDE RECORDS SUMMARY | 2016-08-14 10:34 | XMS REPORT | CCD ---
:1945 Author Name ISAÍASBILLY MANZANO Valente Address [address] [facility] Unavailable [place], [place] [id number] Care Team Providers Name Role Phone SANA BOB Attending Physician Unavailable SANA BOB Er Physician 1 Unavailable Vital Signs Vital Sign Value Unit Weight Measured 217 lbs Height 62 in BMI (Body Mass Index) 39.69 kg/m^2 BSA (Body Surface Area) 2.08 m^2 Allergies Allergy Code Allergy Type Reaction Status [...] Start Date Resolved Date Status CHEST PAIN 32727071 05/23/2012 Active CORONARY ATHEROSCLEROSIS OF [place] CORONARY 52539 05/23/2012 Active ARTERY BP (HIGH BLOOD PRESSURE) 30333897 05/23/2012 Active OLD MYOCARDIAL INFARCT 6288002 05/23/2012 Active TYPE II DIABETES MELLITUS 39224280 05/23/2012 Active EPILEPSY 01687331 05/23/2012 Active HYPOTHYROIDISM 89644574 05/23/2012 Active Results CARDIAC ENZYMES Test Name Code Test Result Test Units Test Date/Time CPK 95.0000 U/L 08/10/2013 10:33 CK-MB 1.4000 ng/mL 08/10/2013 10:33 CK-MB INDEX 1.5000 % 08/10/2013 10:33 TROPONIN I 0.0400 ng/mL 08/10/2013 10:33 PT/PTT, PLASMA Test Name Code Test Result Test Units [place] [address]-14 10.7000 Sec 08/10/2013 10:33 INR 37790-2 1.1000 08/10/2013 10:33 PTT 60959-5 25.9000 Sec 08/10/2013 10:33 COMPREHENSIVE METABOLIC PANEL Test Name Code Test Result Test Units Test Date/Time GLUCOSE 95.0000 mg/dL 08/10/2013 10:33 SODIUM 139.0000 mmol/L 08/10/2013 10:33 POTASSIUM 4.4000 mmol/L 08/10/2013 10:33 CHLORIDE 107.0000 mmol/L 08/10/2013 10:33 CO2 24.0000 mmol/L 08/10/2013 10:33 BUN 19.0000 mg/dL 08/10/2013 10:33 CREATININE 0.7000 mg/dL 08/10/2013 10:33 BUN/CREAT 27.1000 08/10/2013 10:33 CALCIUM 8.9000 mg/dL 08/10/2013 10:33 TOTAL BILI 0.4000 mg/dL 08/10/2013 10:33 TOTAL PROTEIN 7.6000 g/dL 08/10/2013 10:33 ALBUMIN 3.9000 g/dL 08/10/2013 10:33 A/G RATIO 1.1000 08/10/2013 10:33 ALKALINE PHOS 172.0000 IU/L 08/10/2013 10:33 AST/SGOT 34.0000 IU/L 08/10/2013 10:33 ALT/SGPT 38.0000 IU/L 08/10/2013 10:33 ANION GAP 12.6000 mmol/L 08/10/2013 10:33 AGE 68.0000 YE[age] 08/10/2013 10:33 GFR 88.9800 ml/min 08/10/2013 10:33 CBC Test Name Code Test Result Test Units Test Date/Time WBC 6690-2 10.0000 K/uL 08/10/2013 10:33 RBC 789-8 4.9000 M/uL 08/10/2013 10:33 HEMOGLOBIN 718-7 14.1000 g/dL 08/10/2013 10:33 HEMATOCRIT 40.8000 % 08/10/2013 10:33 MCV 83.3000 fL 08/10/2013 10:33 MCH 28.8000 PG 08/10/2013 10:33 MCHC 34.6000 G/DL 08/10/2013 10:33 RDW-SD 42.3000 FL 08/10/2013 10:33 RDW-CV 14.3000 % 08/10/2013 10:33 PLATELETS 194.0000 K/UL 08/10/2013 10:33 MPV 11.0000 FL 08/10/2013 10:33 %GRAN 42.1000 % 08/10/2013 10:33 %LYMPH 47.5000 % 08/10/2013 10:33 %MONO 6.7000 % 08/10/2013 10:33 %EOS 3.2000 % 08/10/2013 10:33 %BASO 0.5000 % 08/10/2013 10:33 #GRAN 4.2200 K/UL 08/10/2013 10:33 #LYMPH 4.7600 K/UL 08/10/2013 10:33 #MONO 0.6700 K/UL 08/10/2013 10:33 #EOS 0.3200 K/UL 08/10/2013 10:33 #BASO 0.0500 K/UL 08/10/2013 10:33 SLIDE REVIEWED? NOT INDICATED N/A 08/10/2013 10:33 MANUAL DIFF NOT INDICATED N/A 08/10/2013 10:33 D-DIMER, PLASMA Test Name Code Test Result Test Units Test Date/Time D-DIMER 0.3700 mg/L 08/10/2013 10:33 Medications Medication Code Dose Units Frequency Route Modification Start Stop Date/Time Date/Time Carbamazepine 839047 200 MILLIGRA 3 x a day, ORAL 06/05/2012 200MG Oral MS as needed 11:40 Tablet, Extended Release Allopurinol 330231 100 MILLIGRA Daily ORAL 06/05/2012 100MG Oral MS 11:40 Tablet Gemfibrozil 767653 600 MILLIGRA Twice a ORAL 06/05/2012 600MG Oral MS day 11:40 Tablet Levothyroxine 115346 0.175 MILLIGRA Daily ORAL 06/05/2012 Sodium 0.175MG MS 11:40 Oral Tablet Atenolol 50MG 911882 50 MILLIGRA At bedtime ORAL 06/05/2012 Oral Tablet MS 11:40 Aspirin 81MG 341509 81 MILLIGRA DAILY ORAL 08/10/2013 Oral Tablet MS 12:10 Lantus 038173 1 EACH TWICE A SUBCUTAN 08/10/2013 100U/1ML DAY EOUS 12:10 Subcutaneous Solution Lisinopril 538732 30 MILLIGRA DAILY ORAL 08/10/2013 30MG Oral MS 12:10 Tablet L-LYSINE 0 2 TABLET NEEDED BY MOUTH 08/10/2013 1000MG 12:10 Nitroglycerin 836149 0.4 MILLIGRA NEEDED SUBLINGU 08/10/2013 0.4MG MS AL 12:10 Sublingual Tablet Novolog 822196 25 UNITS DAILY SUBCUTAN 08/10/2013 FlexPen EOUS 12:10 100U/ML Subcutaneous Solution The Medicine 335879 200 MILLIGRA TWICE A ORAL 08/10/2013 [employer] Q-10 MS DAY 12:10 200MG Oral Capsule, Liquid Filled Omeprazole 997810 20 MILLIGRA DAILY ORAL 08/10/2013 20MG Oral MS 12:11 Capsule, Delayed Release Isosorbide 648258 30 MILLIGRA DAILY ORAL 08/10/2013 Mononitrate MS 12:11 30MG Oral Tablet, Extended Release Diphenox/Atrop 0833241 1 EACH NEEDED ORAL 08/10/2013 ine 12:11 0.025MG-2.5MG Oral Tablet Mirapex 0.25MG 957614 0.25 MILLIGRA BEFORE BED ORAL 08/10/2013 Oral Tablet MS 12:11 Mirapex 0.25MG 662498 0.25 MILLIGRA BEFORE BED ORAL Oral Tablet MS Diphenox/Atrop 6110942 1 EACH NEEDED ORAL ine 0.025MG-2.5MG Oral Tablet Isosorbide 089871 30 MILLIGRA DAILY ORAL Mononitrate MS 30MG Oral Tablet, Extended Release Omeprazole 016505 20 MILLIGRA DAILY ORAL 20MG Oral MS Capsule, Delayed Release [employer] Medicine 666607 200 MILLIGRA TWICE A ORAL [employer] Q[employer]10 MS DAY 200MG Oral Capsule, Liquid Filled Novolog 621223 25 UNITS DAILY SUBCUTAN FlexPen EOUS 100U/ML Subcutaneous Solution Nitroglycerin 179760 0.4 MILLIGRA NEEDED SUBLINGU 0.4MG MS AL Sublingual Tablet L-LYSINE 0 2 TABLET NEEDED BY MOUTH 1000MG Lisinopril 830465 30 MILLIGRA DAILY ORAL 30MG Oral MS Tablet Lantus 070552 1 EACH TWICE A SUBCUTAN 100U/1ML DAY EOUS Subcutaneous Solution Aspirin 81MG 501283 81 MILLIGRA DAILY ORAL Oral Tablet MS Medications Administered Unknown. Encounters Encounter Diagnosis Diagnosis Code Start Date [place] [address] 08/10/2013 Social History Smoking Status Code Start Date End Date Former smoker 0684311 Patient Decision Aids Unknown. Instructions You were admitted to [facility] on 08/10/2013 with a principle diagnosis of CHEST PAIN NEC. You had the following procedures done:INJECT INFUSE NEC You were discharged from [facility] on 08/10/2013. Should you have any questions prior to discharge, please contact a member of your healthcare team. If you have left the hospital and have any questions, please contact your primary care physician. Chief Complaint and Reason For Visit Chief Complaint Date of Onset CHEST PAIN Function Status Unknown. Plan of Care Unknown. Referral/Transition of Care Unknown.
--- OUTSIDE RECORDS SUMMARY | 2016-08-14 10:34 | XMS REPORT | CCD ---
:1945 Author Name BILLY ADAMS Valente Address [address] [facility] Unavailable [place], [place] [id number] Care Team Providers Name Role Phone RIGO REINA Attending Physician Unavailable RIGO REINA Er Physician 1 Unavailable Vital Signs Vital Sign Value Unit Date/Time Recent/Initial? Weight Measured 227 lbs 02/16/2015 03:56 Initial VS Height 62 in 02/16/2015 03:56 Initial VS BMI (Body Mass Index) 41.52 kg/m^2 02/16/2015 03:56 Initial VS BSA (Body Surface Area) 2.12 m^2 02/16/2015 03:56 Initial VS BP Systolic 195 mmHg 02/16/2015 03:56 Initial VS BP Diastolic 89 mmHg 02/16/2015 03:56 Initial VS Allergies Allergy Code Allergy Type Reaction Status CEPHALEXIN 2231 Drug allergy Active Unknown Code - 0 0 Propensity to adverse reactions Active DURICEF 681854 Drug allergy Active PRADAXA 4327263 Drug allergy Active LATEX 0 Allergy to substance Active CLARITHROMYCIN 42658 Drug allergy Active TETRACYCLINE 07767 Drug allergy Active CODEINE 2670 Drug allergy Active MORPHINE 7052 Drug allergy Active SULFAMETHOXAZOLE 55182 Drug allergy Active PENICILLIN 32354 Drug allergy Active CLOPIDOGREL 82252 Drug allergy Active CECLOR 147162 Drug allergy Active Procedures Unknown or Not Available. History of Immunizations Immunization Code Date pneumococcal, unspecified formulation 109 03/23/2011 influenza, seasonal, intradermal, preservative free 144 03/08/2012 Problems Problem Code Start Date Resolved Date Status CHEST PAIN 99933118 05/23/2012 Active CORONARY ATHEROSCLEROSIS OF [place] CORONARY 48201 05/23/2012 Active ARTERY BP (HIGH BLOOD PRESSURE) 31016459 05/23/2012 Active OLD MYOCARDIAL INFARCT 8662092 05/23/2012 Active TYPE II DIABETES MELLITUS 06971595 05/23/2012 Active EPILEPSY 01700462 05/23/2012 Active HYPOTHYROIDISM 38756124 05/23/2012 Active Results COMPREHENSIVE METABOLIC PANEL - Collect Date/Time: 02/16/2015 04:34 Test Name Code Test Result Test Units Test Ref Range GLUCOSE 223 mg/dL L=74 H=106 SODIUM 137 mmol/L L=136 H=145 POTASSIUM 4.1 mmol/L L=3.5 H=5.1 CHLORIDE 101 mmol/L L=98 H=107 CO2 24 mmol/L L=21 H=32 BUN 14.0 mg/dL L=7.0 H=18.0 CREATININE 0.8 mg/dL L=0.6 H=1.0 BUN/CREAT 17.5 L=7.6 H=21.2 CALCIUM 8.5 mg/dL L=8.6 H=10.1 TOTAL BILI 0.5 mg/dL L=0.2 H=1.0 TOTAL PROTEIN 7.1 g/dL L=6.4 H=8.2 ALBUMIN 3.6 g/dL L=3.4 H=5.0 A/G RATIO 1.0 ALKALINE PHOS 133 IU/L L=50 H=136 AST/SGOT 13 IU/L L=15 H=37 ALT/SGPT 36 IU/L L=12 H=78 ANION GAP 16.6 mmol/L L=7.0 H=16.0 AGE 70 YEARS GFR 75.81 ml/min CPK, TOTAL - Collect Date/Time: 02/16/2015 04:34 Test Name Code Test Result Test Units Test Ref Range CPK 94 U/L L=26 H=192 CRP - Collect Date/Time: 02/16/2015 04:34 Test Name Code Test Result Test Units Test Ref Range CRP 3.5 mg/dL L=0.2 H=0.9 MAGNESIUM, SERUM OR PLASMA - Collect Date/Time: 02/16/2015 04:34 Test Name Code Test Result Test Units Test Ref Range MAGNESIUM 1.6 mg/dL L=1.8 H=2.4 CBC W/DIFF - Collect Date/Time: 02/16/2015 04:34 Test Name Code Test Result Test Units Test Ref Range WBC 6690-2 16.7 K/uL L=3.2 H=10.0 RBC 789-8 4.87 M/uL L=4.00 H=5.20 HEMOGLOBIN 718-7 14.5 g/dL L=12.1 H=15.6 HEMATOCRIT 40.5 % L=35.0 H=47.0 MCV 83.2 fL L=81.0 H=101 MCH 29.8 PG L=26.0 H=38.0 MCHC 35.8 G/DL L=31.0 H=37.0 RDW-SD 42.0 FL L=37.0 H=54.0 RDW-CV 14.3 % L=11.0 H=16.0 PLATELETS 150 K/UL L=140 H=380 MPV 10.3 FL L=9.0 H=13.0 %GRAN 80.9 % L=0.0 H=75.0 %LYMPH 12.5 % L=0.0 H=50.0 %MONO 5.7 % L=0.0 H=14.0 %EOS 0.7 % L=0.0 H=6.0 %BASO 0.2 % L=0.0 H=1.0 #GRAN 13.53 K/UL L=1.80 H=7.80 #LYMPH 2.09 K/UL L=0.30 H=4.00 #MONO 0.95 K/UL L=0.00 H=0.70 #EOS 0.12 K/UL L=0.00 H=0.40 #BASO 0.04 K/UL L=0.00 H=0.10 SLIDE REVIEWED? NOT INDICATED N/A MANUAL DIFF NOT INDICATED N/A UA W/MICROSCOPIC EXAM - Collect Date/Time: 02/16/2015 05:09 Test Name Code Test Result Test Units Test Ref Range COLOR UR Yellow N/A NORMAL:YELLOW CLARITY UR Clear N/A NORMAL:CLEAR SP GRAV UR 1.015 N/A NORMAL:1.000-1.030 PH UR 6.0 N/A NORMAL:5.0-8.5 PROTEIN UR Negative N/A NORMAL:NEGATIVE GLUCOSE UR Negative N/A NORMAL:NEGATIVE KETONE UR Trace N/A NORMAL:NEGATIVE BILIRUBIN UR Negative N/A NORMAL:NEGATIVE BLOOD UR 1+ N/A NORMAL:NEGATIVE LEUK UR Negative N/A NORMAL:NEGATIVE NITRITE UR Negative N/A NORMAL:NEGATIVE MICRO SEE BELOW N/A RBC/hpf 6 N/A NORMAL:0-5/hpf WBC/hpf 1 N/A NORMAL:0-10/hpf EPI UR 2-5 N/A NORMAL:NONE SEEN BACTERIA UR FEW N/A NORMAL:NONE SEEN MUCOUS NONE SEE N/A NORMAL:NONE SEEN CRYSTALS NONE SEE N/A CULTURE? NO N/A Active Medications Medication Code Dose Units Frequency Route Modification Start Date/Time Diphenox/Atropine 1552452 1 EACH NEEDED ORAL 08/10/2013 12:11 0.025MG-2.5MG Oral Tablet Prescription Detail TAKE 1 EACH ORAL NEEDED Isosorbide Mononitrate 30MG Oral 134566 30 MILLIGRAMS DAILY ORAL 2013 12:11 Tablet, Extended Release Prescription Detail TAKE 30 MILLIGRAMS ORAL DAILY Omeprazole 20MG Oral Capsule, 904048 20 MILLIGRAMS DAILY ORAL 2013 12:11 Delayed Release Prescription Detail TAKE 20 MILLIGRAMS ORAL DAILY Aspirin 81MG Oral Tablet 551934 81 MILLIGRAMS DAILY ORAL 08/10/2013 12: 10 Prescription Detail TAKE 81 MILLIGRAMS ORAL DAILY L-LYSINE 1000MG 0 2 TABLET NEEDED BY MOUTH 08/10/2013 12:10 Prescription Detail TAKE 2 TABLET BY MOUTH NEEDED Lisinopril 30MG Oral Tablet 077706 30 MILLIGRAMS DAILY ORAL 08/10/2013 12:10 Prescription Detail TAKE 30 MILLIGRAMS ORAL DAILY Nitroglycerin 0.4MG 778599 0.4 MILLIGRAMS NEEDED SUBLINGUAL 2013 12:[address] Prescription Detail [address] 0.4 MILLIGRAMS SUBLINGUAL NEEDED [employer] Q-10 612439 200 MILLIGRAMS TWICE A DAY ORAL 12:10 200MG Oral Capsule, Liquid Filled Prescription Detail TAKE 200 MILLIGRAMS ORAL TWICE A DAY Atenolol 50MG Oral Tablet 029551 50 MILLIGRAMS At bedtime ORAL 2011 11:40 Prescription Detail 50 MILLIGRAMS ORAL At bedtime Levothyroxine Sodium 0.175MG 292261 0.175 MILLIGRAMS Daily ORAL 2011 11:40 Oral Tablet Prescription Detail 0.175 MILLIGRAMS ORAL Daily Allopurinol 100MG Oral Tablet 241010 100 MILLIGRAMS Daily ORAL 2011 11:40 Prescription Detail 100 MILLIGRAMS ORAL Daily Carbamazepine 200MG 318207 200 MILLIGRAMS 3 x a day, as ORAL 2011 11:40 Oral Tablet, Extended needed Release Prescription Detail 200 MILLIGRAMS ORAL 3 x a day, as needed Medications Administered During Visit Unknown or Not Available. Encounters Encounter Diagnosis Diagnosis Code Start Date PAIN IN LIMB 7295 02/16/2015 Social History Smoking Status Code Start Date End Date Former smoker [id number] 01/11/1963 06/13/1969 Patient Decision Aids Unknown or Not Available. Discharge Instructions You were admitted to [facility] on 02/16/2015 with a principal diagnosis of PAIN IN LIMB. You were discharged from [facility] on 02/16/2015. Should you have any questions prior to discharge, please contact a member of your healthcare team. If you have left the hospital and have any questions, please contact your primary care physician. Chief Complaint and Reason For Visit Chief Complaint Date of Onset LEG PAIN RESTLESS LEG Function Status Unknown or Not Available. Plan of Care Unknown or Not Available. Referral/Transition of Care Unknown or Not Available.
--- OUTSIDE RECORDS SUMMARY | 2016-08-14 10:34 | XMS REPORT | CCD ---
:1945 Author Name HAN MURPHY Address [address] [facility] Unavailable [place], [place] [phone] Care Team Providers Name Role Phone MIAN EASLEY Attending Physician Unavailable Vital Signs Unknown or Not Available. Allergies Allergy Code Allergy Type Reaction Status CEPHALEXIN 2231 Drug allergy Active Unknown Code - 0 0 Propensity to adverse reactions Active DURICEF 222258 Drug allergy Active PRADAXA 0552695 Drug allergy Active LATEX 0 Allergy to substance Active CLARITHROMYCIN 34573 Drug allergy Active TETRACYCLINE 49206 Drug allergy Active CODEINE 2670 Drug allergy Active MORPHINE 7052 Drug allergy Active SULFAMETHOXAZOLE 27850 Drug allergy Active PENICILLIN 52293 Drug allergy Active CLOPIDOGREL 03531 Drug allergy Active CECLOR 857106 Drug allergy Active Procedures Procedure Code Procedure Type Date C.A.T. SCAN OF ABDOMEN 8801 ICD-9 CM, Volume 3 10/22/2014 CT ABD/PEL WITH 257216005 SNOMED CT 10/22/2014 History of Immunizations Immunization Code Date pneumococcal, unspecified formulation 109 03/23/2011 influenza, seasonal, intradermal, preservative free 144 03/08/2012 Problems Problem Code Start Date Resolved Date Status CHEST PAIN 37467930 05/23/2012 Active CORONARY ATHEROSCLEROSIS OF [place] CORONARY 33696 05/23/2012 Active ARTERY BP (HIGH BLOOD PRESSURE) 88094580 05/23/2012 Active OLD MYOCARDIAL INFARCT 8445264 05/23/2012 Active TYPE II DIABETES MELLITUS 09634717 05/23/2012 Active EPILEPSY 91476759 05/23/2012 Active HYPOTHYROIDISM 73255079 05/23/2012 Active Results Unknown or Not Available. Active Medications Medication Code Dose Units Frequency Route Modification Start Date/Time Diphenox/Atropi 8295125 1 EACH NEEDED ORAL 08/10/2013 ne 12:11 0.025MG-2.5MG Oral Tablet Isosorbide 935777 30 MILLIGRAMS DAILY ORAL 08/10/2013 Mononitrate 12:11 30MG Oral Tablet, Extended Release Mirapex 0.25MG 624977 0.25 MILLIGRAMS BEFORE BED ORAL 08/10/2013 Oral Tablet 12:11 Omeprazole 20MG 298820 20 MILLIGRAMS DAILY ORAL 08/10/2013 Oral Capsule, 12:11 Delayed Release Aspirin 81MG 963018 81 MILLIGRAMS DAILY ORAL 08/10/2013 Oral Tablet 12:10 L-LYSINE 1000MG 0 2 TABLET NEEDED BY MOUTH 08/10/2013 12:10 Lantus 100U/1ML 201511 1 EACH TWICE A SUBCUTANEOUS 08/10/2013 Subcutaneous DAY 12:10 Solution Lisinopril 30MG 946934 30 MILLIGRAMS DAILY ORAL 08/10/2013 Oral Tablet 12:10 Nitroglycerin 712411 0.4 MILLIGRAMS NEEDED SUBLINGUAL 08/10/2013 0.4MG 12:10 Sublingual Tablet Novolog FlexPen 158843 25 UNITS DAILY SUBCUTANEOUS 08/10/2013 100U/ML 12:10 Subcutaneous Solution The Medicine 227994 200 MILLIGRAMS TWICE A ORAL 08/10/2013 [employer] Q-10 DAY 12:10 200MG Oral Capsule, Liquid Filled Atenolol 50MG 228551 50 MILLIGRAMS At bedtime ORAL 06/05/2012 Oral Tablet 11:40 Gemfibrozil 408464 600 MILLIGRAMS Twice a ORAL 06/05/2012 600MG Oral day 11:40 Tablet Levothyroxine 338213 0.175 MILLIGRAMS Daily ORAL 06/05/2012 Sodium 0.175MG 11:40 Oral Tablet Allopurinol 028255 100 MILLIGRAMS Daily ORAL 06/05/2012 100MG Oral 11:40 Tablet Carbamazepine 104648 200 MILLIGRAMS 3 x a day, ORAL 06/05/2012 200MG Oral as needed 11:40 Tablet, Extended Release Medications Administered During Visit Unknown or Not Available. Encounters Encounter Diagnosis Diagnosis Code Start Date NONINF GASTROENTERIT NEC 5589 10/22/2014 Social History Smoking Status Code Start Date End Date Former smoker [id number] 01/11/1963 06/13/1969 Patient Decision Aids Unknown or Not Available. Discharge Instructions You were admitted to [facility] on 10/22/2014 with a principal diagnosis of NONINF GASTROENTERIT NEC. You had the following procedures done:C.A.T. SCAN OF ABDOMEN You were discharged from [facility] on 10/22/2014. Should you have any questions prior to [...]
--- OUTSIDE RECORDS SUMMARY | 2016-08-14 10:35 | XMS REPORT | CCD ---
:1945 Author Name HAN MURPHY Address [address] [facility] Unavailable [place], [place] [phone] Care Team Providers Name Role Phone Alphonso [...] 0 Propensity to adverse reactions Active DURICEF 009328 Drug allergy Active PRADAXA 7450423 Drug allergy Active LATEX 0 Allergy to substance Active CLARITHROMYCIN 76208 Drug allergy Active TETRACYCLINE 91756 Drug allergy Active CODEINE 2670 Drug allergy Active MORPHINE 7052 Drug allergy Active SULFAMETHOXAZOLE 18480 Drug allergy Active PENICILLIN 15460 Drug allergy Active CLOPIDOGREL 09869 Drug allergy Active CECLOR 806906 Drug allergy Active Procedures Procedure Code Procedure Type Date ENDOSCOPIC LG BOWEL BX 4525 ICD-9 CM, Volume 3 10/31/2014 History of Immunizations Immunization Code Date pneumococcal, unspecified formulation 109 03/23/2011 influenza, seasonal, intradermal, preservative free 144 03/08/2012 Problems Problem Code Start Date Resolved Date Status CHEST PAIN 73500396 05/23/2012 Active CORONARY ATHEROSCLEROSIS OF [place] CORONARY 95507 05/23/2012 Active ARTERY BP (HIGH BLOOD PRESSURE) 92026960 05/23/2012 Active OLD MYOCARDIAL INFARCT 7097329 05/23/2012 Active TYPE II DIABETES MELLITUS 15256946 05/23/2012 Active EPILEPSY 58370546 05/23/2012 Active HYPOTHYROIDISM 30971302 05/23/2012 Active Results Unknown or Not Available. Active Medications Medication Code Dose Units Frequency Route Modification Start Date/Time Diphenox/Atropi 1297707 1 EACH NEEDED ORAL 08/10/2013 ne 12:11 0.025MG-2.5MG Oral Tablet Isosorbide 588755 30 MILLIGRAMS DAILY ORAL 08/10/2013 Mononitrate 12:11 30MG Oral Tablet, Extended Release Mirapex 0.25MG 170839 0.25 MILLIGRAMS BEFORE BED ORAL 08/10/2013 Oral Tablet 12:11 Omeprazole 20MG 374830 20 MILLIGRAMS DAILY ORAL 08/10/2013 Oral Capsule, 12:11 Delayed Release Aspirin 81MG 193825 81 MILLIGRAMS DAILY ORAL 08/10/2013 Oral Tablet 12:10 L-LYSINE 1000MG 0 2 TABLET NEEDED BY MOUTH 08/10/2013 12:10 Lantus 100U/1ML 720612 1 EACH TWICE A SUBCUTANEOUS 08/10/2013 Subcutaneous DAY 12:10 Solution Lisinopril 30MG 576587 30 MILLIGRAMS DAILY ORAL 08/10/2013 Oral Tablet 12:10 Nitroglycerin 584056 0.4 MILLIGRAMS NEEDED SUBLINGUAL 08/10/2013 0.4MG 12:10 Sublingual Tablet Novolog FlexPen 333083 25 UNITS DAILY SUBCUTANEOUS 08/10/2013 100U/ML 12:10 Subcutaneous Solution The Medicine 138053 200 MILLIGRAMS TWICE A ORAL 08/10/2013 [employer] Q-10 DAY 12:10 200MG Oral Capsule, Liquid Filled Atenolol 50MG 260891 50 MILLIGRAMS At bedtime ORAL 06/05/2012 Oral Tablet 11:40 Gemfibrozil 609750 600 MILLIGRAMS Twice a ORAL 06/05/2012 600MG Oral day 11:40 Tablet Levothyroxine 403204 0.175 MILLIGRAMS Daily ORAL 06/05/2012 Sodium 0.175MG 11:40 Oral Tablet Allopurinol 483825 100 MILLIGRAMS Daily ORAL 06/05/2012 100MG Oral 11:40 Tablet Carbamazepine 583394 200 MILLIGRAMS 3 x a day, ORAL 06/05/2012 200MG Oral as needed 11:40 Tablet, Extended Release Medications Administered During Visit Unknown or Not Available. Encounters Encounter Diagnosis Diagnosis Code Start Date DIARRHEA 35107 10/31/2014 Social History Smoking Status Code Start Date End Date Former smoker [id number] 01/11/1963 06/13/1969 Patient Decision Aids Unknown or Not Available. Discharge Instructions You were admitted to [facility] on 10/31/2014 with a principal diagnosis of DIARRHEA. You had the following procedures done:COLONOSCOPY AND BIOPSY You were discharged from [facility] on 10/31/2014. Should you have any questions [...]
--- OUTSIDE RECORDS SUMMARY | 2016-08-14 10:35 | XMS REPORT | CCD ---
:1945 Author Name HAN MURPHY Address [address] [facility] Unavailable [place], [place] [phone] Care Team Providers Name Role Phone MIAN EASLEY Attending Physician Unavailable Vital Signs Unknown or Not Available. Allergies Allergy Code Allergy Type Reaction Status CEPHALEXIN 2231 Drug allergy Active Unknown Code - 0 0 Propensity to adverse reactions Active DURICEF 807114 Drug allergy Active PRADAXA 8539141 Drug allergy Active LATEX 0 Allergy to substance Active CLARITHROMYCIN 10749 Drug allergy Active TETRACYCLINE 68383 Drug allergy Active CODEINE 2670 Drug allergy Active MORPHINE 7052 Drug allergy Active SULFAMETHOXAZOLE 18456 Drug allergy Active PENICILLIN 01609 Drug allergy Active CLOPIDOGREL 84612 Drug allergy Active CECLOR 402144 Drug allergy Active Procedures Unknown or Not Available. History of Immunizations Immunization Code Date pneumococcal, unspecified formulation 109 03/23/2011 influenza, seasonal, intradermal, preservative free 144 03/08/2012 Problems Problem Code Start Date Resolved Date Status CHEST PAIN 36176231 05/23/2012 Active CORONARY ATHEROSCLEROSIS OF [place] CORONARY 85559 05/23/2012 Active ARTERY BP (HIGH BLOOD PRESSURE) 98928561 05/23/2012 Active OLD MYOCARDIAL INFARCT 5358674 05/23/2012 Active TYPE II DIABETES MELLITUS 42533904 05/23/2012 Active EPILEPSY 66311401 05/23/2012 Active HYPOTHYROIDISM 95161728 05/23/2012 Active Results SED RATE Test Name Code Test Result Test Units Test Date/Time SED RATE 15.0000 mm/HR 12/11/2013 12:41 Medications Medication Code Dose Units Frequency Route Modification Start Stop Date/Time Date/Time Carbamazepine 461638 200 MILLIGRA 3 x a day, ORAL 06/05/2012 200MG Oral MS as needed 11:40 Tablet, Extended Release Allopurinol 310019 100 MILLIGRA Daily ORAL 06/05/2012 100MG Oral MS 11:40 Tablet Gemfibrozil 804108 600 MILLIGRA Twice a ORAL 06/05/2012 600MG Oral MS day 11:40 Tablet Levothyroxine 791927 0.175 MILLIGRA Daily ORAL 06/05/2012 Sodium 0.175MG MS 11:40 Oral Tablet Atenolol 50MG 457632 50 MILLIGRA At bedtime ORAL 06/05/2012 Oral Tablet MS 11:40 Aspirin 81MG 560528 81 MILLIGRA DAILY ORAL 08/10/2013 Oral Tablet MS 12:10 Lantus 747808 1 EACH TWICE A SUBCUTAN 08/10/2013 100U/1ML DAY EOUS 12:10 Subcutaneous Solution Lisinopril 988033 30 MILLIGRA DAILY ORAL 08/10/2013 30MG Oral MS 12:10 Tablet L-LYSINE 0 2 TABLET NEEDED BY MOUTH 08/10/2013 1000MG 12:10 Nitroglycerin 871251 0.4 MILLIGRA NEEDED SUBLINGU 08/10/2013 0.4MG MS AL 12:10 Sublingual Tablet Novolog 845829 25 UNITS DAILY SUBCUTAN 08/10/2013 FlexPen EOUS 12:10 100U/ML Subcutaneous Solution The Medicine 321379 200 MILLIGRA TWICE A ORAL 08/10/2013 Neumitra Q-10 MS DAY 12:10 200MG Oral Capsule, Liquid Filled Omeprazole 319254 20 MILLIGRA DAILY ORAL 08/10/2013 20MG Oral MS 12:11 Capsule, Delayed Release Isosorbide 492669 30 MILLIGRA DAILY ORAL 08/10/2013 Mononitrate MS 12:11 30MG Oral Tablet, Extended Release Diphenox/Atrop 1573577 1 EACH NEEDED ORAL 08/10/2013 ine 12:11 0.025MG-2.5MG Oral Tablet Mirapex 0.25MG 217668 0.25 MILLIGRA BEFORE BED ORAL 08/10/2013 Oral Tablet MS 12:11 Medications Administered Unknown or Not Available. Encounters Encounter Diagnosis Diagnosis Code Start Date JOINT PAIN-L LEG 98384 12/11/2013 Social History Smoking Status Code Start Date End Date Former smoker [id number] 01/11/1963 06/13/1969 Patient Decision Aids Unknown or Not Available. Discharge Instructions You were admitted to [facility] on 12/11/2013 with a principal diagnosis of JOINT PAIN-L LEG. You were discharged from [facility] on 12/11/2013. Should you have any questions prior to [...]
--- OUTSIDE RECORDS SUMMARY | 2016-08-14 10:35 | XMS REPORT | CCD ---
:1945 Author Name HAN MURPHY Address [address] [facility] Unavailable [place], [place] [phone] Care Team Providers Name Role Phone MIAN EASLEY Attending Physician Unavailable Vital Signs Unknown or Not Available. Allergies Allergy Code Allergy Type Reaction Status CEPHALEXIN 2231 Drug allergy Active Unknown Code - 0 0 Propensity to adverse reactions Active DURICEF 787598 Drug allergy Active PRADAXA 8151197 Drug allergy Active LATEX 0 Allergy to substance Active CLARITHROMYCIN 98574 Drug allergy Active TETRACYCLINE 48135 Drug allergy Active CODEINE 2670 Drug allergy Active MORPHINE 7052 Drug allergy Active SULFAMETHOXAZOLE 64242 Drug allergy Active PENICILLIN 81411 Drug allergy Active CLOPIDOGREL 70811 Drug allergy Active CECLOR 792286 Drug allergy Active Procedures Procedure Code Procedure Type Date MAMMOGRAPHY NEC 8737 ICD-9 CM, Volume 3 10/01/2014 MM D[place] 44807112 SNOMED CT 10/01/2014 History of Immunizations Immunization Code Date pneumococcal, unspecified formulation 109 03/23/2011 influenza, seasonal, intradermal, preservative free 144 03/08/2012 Problems Problem Code Start Date Resolved Date Status CHEST PAIN 22208718 05/23/2012 Active CORONARY ATHEROSCLEROSIS OF [place] CORONARY 77147 05/23/2012 Active ARTERY BP (HIGH BLOOD PRESSURE) 91825744 05/23/2012 Active OLD MYOCARDIAL INFARCT 8207310 05/23/2012 Active TYPE II DIABETES MELLITUS 84459089 05/23/2012 Active EPILEPSY 11918450 05/23/2012 Active HYPOTHYROIDISM 53714160 05/23/2012 Active Results Unknown or Not Available. Active Medications Medication Code Dose Units Frequency Route Modification Start Date/Time Diphenox/Atropi 7633370 1 EACH NEEDED ORAL 08/10/2013 ne 12:11 0.025MG-2.5MG Oral Tablet Isosorbide 625784 30 MILLIGRAMS DAILY ORAL 08/10/2013 Mononitrate 12:11 30MG Oral Tablet, Extended Release Mirapex 0.25MG 487059 0.25 MILLIGRAMS BEFORE BED ORAL 08/10/2013 Oral Tablet 12:11 Omeprazole 20MG 477487 20 MILLIGRAMS DAILY ORAL 08/10/2013 Oral Capsule, 12:11 Delayed Release Aspirin 81MG 326663 81 MILLIGRAMS DAILY ORAL 08/10/2013 Oral Tablet 12:10 L-LYSINE 1000MG 0 2 TABLET NEEDED BY MOUTH 08/10/2013 12:10 Lantus 100U/1ML 060837 1 EACH TWICE A SUBCUTANEOUS 08/10/2013 Subcutaneous DAY 12:10 Solution Lisinopril 30MG 681277 30 MILLIGRAMS DAILY ORAL 08/10/2013 Oral Tablet 12:10 Nitroglycerin 688232 0.4 MILLIGRAMS NEEDED SUBLINGUAL 08/10/2013 0.4MG 12:10 Sublingual Tablet Novolog FlexPen 446071 25 UNITS DAILY SUBCUTANEOUS 08/10/2013 100U/ML 12:10 Subcutaneous Solution The Medicine 648262 200 MILLIGRAMS TWICE A ORAL 08/10/2013 [employer] Q-10 DAY 12:10 200MG Oral Capsule, Liquid Filled Atenolol 50MG 926554 50 MILLIGRAMS At bedtime ORAL 06/05/2012 Oral Tablet 11:40 Gemfibrozil 435439 600 MILLIGRAMS Twice a ORAL 06/05/2012 600MG Oral day 11:40 Tablet Levothyroxine 704773 0.175 MILLIGRAMS Daily ORAL 06/05/2012 Sodium 0.175MG 11:40 Oral Tablet Allopurinol 826706 100 MILLIGRAMS Daily ORAL 06/05/2012 100MG Oral 11:40 Tablet Carbamazepine 340296 200 MILLIGRAMS 3 x a day, ORAL 06/05/2012 200MG Oral as needed 11:40 Tablet, Extended Release Medications Administered During Visit Unknown or Not Available. Encounters Encounter Diagnosis Diagnosis Code Start Date OTH SCREEN MAMMO FOR MAL NEOPLASM V7612 10/01/2014 Social History Smoking Status Code Start Date End Date Former smoker [id number] 01/11/1963 06/13/1969 Patient Decision Aids Unknown or Not Available. Discharge Instructions You were admitted to [facility] on 10/01/2014 with a principal diagnosis of OTH SCREEN MAMMO FOR MAL NEOPLASM. You had the following procedures done:MAMMOGRAPHY NEC You were discharged from [facility] on 10/01/2014. Should you have any questions prior to [...]
[2016-08-14] MEDS ORDERED: LORazepam 2 MG/ML DISP.SYRIN ONE (10:39)
[2016-08-14] MEDS ORDERED: LORazepam 2 MG/ML DISP.SYRIN IV ONE (10:41)
[2016-08-14] MEDS ORDERED: LEVOFLOXACIN/D5W 750 MG in Premix Bag 1 BAG IV ONE (10:42)
[2016-08-14] MEDS ORDERED: FUROSEMIDE 10 MG/ML VIAL IV ONE (10:44)
[2016-08-14] MEDS ORDERED: NORMAL SALINE 3,000 ML IV ONE (10:45)
--- NOTE | 2016-08-14 10:52 | ERNOTE ---
Syncope ER HPI Date of Service: 08/14/16 Stated Complaint: FALL, DIARRHEA Time Seen by Provider: 08/14/16 09:12 Source: patient, family Immunizations: IMMUNIZATION HX Immunizations Up to Date Yes History of Influenza Vaccine Yes Hx Pneumococcal Vaccination Yes Home Medications: HOME MEDICATIONS Allopurinol [Zyloprim (Allopurinol)] 100 mg PO DAILY 08/14/16 [Last Taken Unknown] Aspirin [Aspirin Enteric Coated] 81 mg PO DAILY 08/14/16 [Last Taken Unknown] Atenolol [Tenormin] 50 mg PO DAILY 08/14/16 [Last Taken Unknown] Insulin Glargine,Hum.rec.anlog [Lantus] 40 unit SQ QAM 08/14/16 [Last Taken Unknown] Insulin Glargine,Hum.rec.anlog [Lantus] 55 unit SQ HS 08/14/16 [Last Taken Unknown] Insulin Lispro [Humalog] 10 unit SQ QAM 08/14/16 [Last Taken Unknown] Insulin Lispro [Humalog] 20 unit SQ BID 08/14/16 [Last Taken Unknown] Isosorbide Mononitrate [Imdur] 30 mg PO DAILY 08/14/16 [Last Taken Unknown] Levothyroxine Sodium [Synthroid] 150 mcg PO DAILY 08/14/16 [Last Taken Unknown] Lisinopril [Zestril] 30 mg PO DAILY 08/14/16 [Last Taken Unknown] Loratadine [Claritin] 10 mg PO DAILY PRN 08/14/16 [Last Taken Unknown] Multivitamin [One Daily Essential] 1 each PO DAILY 08/14/16 [Last Taken Unknown] Pravastatin Sodium 10 mg PO HS 08/14/16 [Last Taken Unknown] Ubidecarenone [Coenzyme Q10] 100 mg PO BID 08/14/16 [Last Taken Unknown] carBAMazepine [Tegretol] 200 mg PO BID 08/14/16 [Last Taken Unknown] - History of Present Illness Narrative: Patient comes after a syncopal event last night. Patient reported some SOB, coughing, and R shoulder pain. Patient denied any chest pain and no new seizures. Patient reported that she is getting fatigue on walking. Prior Episodes: Present: remote history Last known well:: 22:00 - Last night Symptoms prior to episode: Present: none. Absent: headache, chest pain Activity at time of episode: Present: sitting Character of event: Absent: no loss of consciousness, seizure activity observed Location of Injury: Present: RUE - R Shoulder Prior Treament: Reports: recently seen Review of Systems - Review of Systems Constitutional: Present: chills, weakness, fatigue, malaise EYE: Present: no symptoms reported ENT: Present: no symptoms reported Respiratory: Present: shortness of breath, cough - none productive Cardiology: Present: syncope. Absent: chest pain Gastrointestinal/Abdominal: Present: no symptoms reported Genitourinary: Present: no symptoms reported Musculoskeletal: Present: no symptoms reported Skin: Present: no symptoms reported Neurological: Present: seizure - here at ER one event Endocrine: Present: other - Hyperglycemia Hematologic/Lymphatic: Present: no symptoms reported Psych: Present: no symptoms reported All Other Systems: All systems neg except as marked - Patient's Past Medical History Patient History - Medical: Diabetes Type 2, Hypothyroidism, Osteoporosis, Seizures Patient History - Cardiac/Respiratory: Hypertension, Hyperlipidemia, Other Patient History - Surgical Procedures: Appendectomy, Cataracts, Cardiac stent, Hysterectomy, Total Knee Replacement, Other Patient History - Other: None - Social History Living Situations: home Abuse History: No History of abuse Smoking Status: Never smoker Have you smoked in the past 12 months: No Alcohol Use: none Drug Use: none - Immunizations Immunizations Up to Date: Yes Hx Pneumococcal Vaccination: Yes History of Influenza Vaccine: Yes Physical Exam - Physical Exam General Appearance: Present: alert, no apparent distress, obese. Absent: anxious Eye Exam: Normal inspection: bilateral, PERRL: bilateral, EOMI: bilateral Ears, Nose, Throat: Present: normal ENT inspection, normal pharynx, dry mucous membranes Neck: Present: normal inspection, nontender. Absent: carotid bruit Respiratory: Present: chest nontender, expiration (prolonged), crackles, rhonchi - R side of the chest. Absent: chest tenderness, accessory muscle use, rales, wheezing Cardiovascular/Chest: Present: regular rate, rhythm, no murmur, normal peripheral pulses. Absent: JVD Gastrointestinal/Abdominal: Present: normal bowel sounds, nontender, nondistended, soft, no organomegaly Rectal Exam: Present: nontender, normal rectal tone Back Exam: Present: normal inspection, no CVA tenderness Extremity Exam: Present: normal inspection, non-tender, normal range of motion, no edema Neurological Exam: Present: alert, oriented, normal mood/affect, no motor/ sensory deficits Skin Exam: Present: normal color, warm/dry Lymphatic Exam: Present: no adenopathy ED Progress - Date and Time Seen: Date and Time: 08/14/16 11:04 At ER patient had one seizure event that lasted 5 minutes and improved with Ativan. Patient was reported that she has been stopped her seizure medications recently. Patient has a negative Head CT. Patient was found with a R side pneumonia. Patient was found with elevated Trop. Patient will be transfer to [facility] [place] in order to follow with her Licensed Sales Producer and to ensure health insurance coverage. Patient's case has been presented to Dr. Gonzales and neurosurgeon at [facility]. At this point patient has been stabilized for her condition. Heparin was held due to seizures. - Results and Orders Patient's Lab Results:: I have reviewed the patient's lab results. Results and Orders: UA: Positive Trip: Positive (3.188) WBC: 31.3K CMP: normal INR: Normal - Vital Signs Patient's Vital Signs:: I have reviewed the patient's vital signs. Vital Signs: Vital Signs 08/14/16 08/14/16 08:45 10:15 Temperature 37.5 C Pulse Rate 87 76 Respiratory 20 18 Rate Blood Pressure 184/92 153/69 O2 Sat by Pulse 94 93 Oximetry - EKG EKG: NSR EKG read: Interp. by me EKG Comments: HR: 73, No ST Elevations, Depressions on I and aVL, LVH, Normal QT/QTc - X-Ray X-Ray #1 X-Ray: chest X-ray Comments: Pneumonia reported by Radiologist - CT/Ultrasound CT/Ultrasound Narrative: CT of Head with no contrast: Negative by Radiologist - Progress/Reassessment Chief Complaint: Syncopal Episode - Transfer of Care Expected Disposition: Transfer - Patient requested, insurance coverage, need to F/U with Licensed Sales Producer and Neurologist Plan - Plan Plan: Send to [facility] Departure Clinical Impression: Seizure Sepsis Qualifiers: Sepsis type: sepsis due to unspecified organism Qualified Code(s): A41.9 - Sepsis, unspecified organism Pneumonia Qualifiers: Pneumonia type: aspiration pneumonia Aspiration pneumonia type: unspecified Laterality: right Lung location: unspecified part of lung Qualified Code(s): J69.0 - Pneumonitis due to inhalation of food and vomit Syncope Qualifiers: Syncope type: unspecified Qualified Code(s): R55 - Syncope and collapse - Departure Disposition: [facility] [place] Condition: Serious
[2016-08-14] MEDS ORDERED: ASPIRIN 81 MG TAB.CHEW PO ONE (10:57)
[2016-08-14] MEDS ORDERED: ASPIRIN 81 MG TAB.CHEW ONE (11:15)
[2016-08-14] MEDS ORDERED: FUROSEMIDE 10 MG/ML VIAL ONE (11:18)
[2016-08-14] MEDS ORDERED: AZTREONAM IV ONE ×2 (12:00)
[2016-08-14] MEDS ORDERED: WATER IV ONE ×2 (12:00)
[2016-08-14] MEDS ORDERED: DEXTROSE 5% IV ONE ×2 (12:00)
[2016-08-14 14:27] VITALS: BP 131/58
== END 2016-08-14 13:26 | disposition short-term general hospital (02) ==
LOC: ER 08:33
DX: R56.9 Unspecified convulsions (principal); A41.9 Sepsis, unspecified organism; J69.0 Pneumonitis due to inhalation of food and vomit; R55 Syncope and collapse; E11.9 Type 2 diabetes mellitus without complications; E03.9 Hypothyroidism, unspecified; I10 Essential (primary) hypertension; E78.5 Hyperlipidemia, unspecified